=== PATIENT | male | born 1980 | race African-American/Black ===

== ENCOUNTER 2021-03-18 07:59 | Emergency (ER) | payer MEDICAID ==
[~2021-03-18] VITALS: Ht 170.2 cm; Wt 77.0 kg
[2021-03-18] MEDS ORDERED: LEVETIRACETAM 1000MG PREMIX 100 ML IV ONE (08:15)
[2021-03-18 08:37] LABS: BASOPHILS % 0.5 % (0.0-2.0); EOSINOPHILS % 0.2 % (0.0-5.0); HEMATOCRIT. 45.6 % (42.0-52.0); HEMOGLOBIN. 14.9 g/dL (14.0-18.0); LYMPHOCYTES % 14.7 % (20.0-50.0); MEAN CORPUSCULAR VOLUME 100.8 fL (80.0-94.0); MEAN PLATELET VOLUME 9.2 fl (7.4-10.4); MONOCYTES % 10.4 % (2.0-8.0); NEUTROPHILS % 74.2 % (40.0-76.0); PLATELET 129 x1000/uL (130-400); RED BLOOD CELL COUNT 4.52 mill/uL (4.7-6.1); RED CELL DISTRIBUTION WIDTH 14.8 % (11.6-14.6)
[2021-03-18 08:40] LABS: CLARITY URINE CLEAR (CLEAR); COLOR URINE DARK YELLOW (YELLOW); KETONES URINE TRACE (NEGATIVE); LEUKOCYTE ESTERASE URINE NEGATIVE (NEGATIVE); NITRITE URINE NEGATIVE (NEGATIVE); OCCULT BLOOD URINE NEGATIVE (NEGATIVE); PROTEIN URINE 1+ (NEGATIVE); SPECIFIC GRAVITY URINE 1.022 (1.005-1.030)
[2021-03-18 08:50] LABS: *BARBITURATES SCREEN URINE NEGATIVE (NEGATIVE)
[2021-03-18 08:51] LABS: *AMPHETAMINES SCREEN URINE NEGATIVE (NEGATIVE); *BENZODIAZEPINES SCREEN URINE NEGATIVE (NEGATIVE); *COCAINE SCREEN URINE NEGATIVE (NEGATIVE); METHADONE URINE SCREEN NEGATIVE (NEGATIVE)
[2021-03-18 08:52] LABS: CANNABINOID URINE SCREEN NEGATIVE (NEGATIVE); OPIATES URINE SCREEN NEGATIVE (NEGATIVE); PHENCYCLIDINE URINE SCREEN NEGATIVE (NEGATIVE)
[2021-03-18 09:24] LABS: CHLORIDE 104 mEq/L (98-107)
[2021-03-18] MEDS ORDERED: TOPUD PO (10:42)
[2021-03-18] MEDS ORDERED: KETOROLAC 30MG/ML VIAL IV ONE (10:45)
[2021-03-18] MEDS ORDERED: METOCLOPRAMIDE HCL 10MG/2ML VIAL IV ONE (10:45)
[2021-03-18 11:18] VITALS: BP 126/76
== END 2021-03-18 11:50 | disposition home or self-care (01) ==
LOC: ER 07:59
DX: R56.9 Unspecified convulsions (principal)
CPT/HCPCS: 36415; 70450; 80053; 80305; 80320; 81003; 82962; 85025; 93005; 96365; 96375; 99285; J1885; J1953; J2765; Z7610; G0480

== ENCOUNTER 2024-01-07 17:00 | Emergency (ER) | payer MEDICAID ==
[~2024-01-07] VITALS: Ht 165.1 cm; Wt 70.0 kg
[~2024-01-07 17:00] MED LIST: TOPUD PO
[2024-01-07 17:06] VITALS: O2SAT 98
[2024-01-07 18:06] LABS: HEMOGLOBIN. 12.1 g/dL (14.0-18.0); MEAN CORPUSCULAR HEMOGLOBIN 27.6 pg (28.0-32.0); MEAN CORPUSCULAR VOLUME 86.4 fL (80.0-94.0); MEAN PLATELET VOLUME 8.3 fl (7.4-10.4); PLATELET 127 x1000/uL (130-400); RED CELL DISTRIBUTION WIDTH 23.5 % (11.6-14.6)
[2024-01-07 18:07] LABS: DIFFERENTIAL COMMENT 1
[2024-01-07 18:19] LABS: ALANINE AMINOTRANSFERASE 14 IU/L (10-49); ALBUMIN 4.7 g/dL (3.2-4.8); ASPARTATE AMINOTRANSFERASE 36 IU/L (<34); BILIRUBIN TOTAL 0.6 mg/dL (0.1-1.0); CALCIUM 9.6 mg/dL (8.7-10.4); CARBON DIOXIDE 28 mEq/L (21-32); CHLORIDE 104 mEq/L (98-107); CREATININE 0.8 mg/dL (0.6-1.3); GLUCOSE 100 mg/dL (70-105); POTASSIUM 4.1 mEq/L (3.5-5.1); PROTEIN TOTAL 8.6 g/dL (6.0-8.3); SODIUM 139 mEq/L (136-145); UREA NITROGEN BLOOD 11 mg/dL (9-23)
[2024-01-07 18:23] LABS: GIANT PLATELETS 1+; PLATELET ESTIMATE NORMAL
[2024-01-07] MEDS: LEVETIRACETAM 500MG PREMIX 100 ML IV ONE (18:24)
[2024-01-07] MEDS ORDERED: KEPP500 MT (19:26)
[2024-01-07] MEDS ORDERED: ONDA4TAB50 MT (19:26)
[2024-01-07] MEDS: ONDANSETRON HCL 4MG/2ML INJ IV ONE (19:55)
[2024-01-07 21:03] LABS: CLARITY URINE CLEAR (CLEAR); COLOR URINE YELLOW (YELLOW); GLUCOSE URINE NEGATIVE (NEGATIVE); KETONES URINE TRACE (NEGATIVE); LEUKOCYTE ESTERASE URINE NEGATIVE (NEGATIVE); NITRITE URINE NEGATIVE (NEGATIVE); OCCULT BLOOD URINE NEGATIVE (NEGATIVE); PH URINE 6.5 (4.5-8.0); PROTEIN URINE 1+ (NEGATIVE); SPECIFIC GRAVITY URINE 1.021 (1.005-1.030)
[2024-01-07] MEDS: ACETAMINOPHEN 325MG TABLET PO ONE (21:21)
[2024-01-07 21:51] LABS: BACTERIA URINE NONE SEEN; RBC URINE 0-2 /hpf (0-2); SQUAMOUS EPITHELIAL CELL URINE FEW /lpf (RARE/1+); WBC URINE 0-2 /hpf (0-2); YEAST URINE NONE SEEN
[2024-01-07 23:29] VITALS: BP 128/86; PULSE 68; RESP 18; TEMP 98.4
== END 2024-01-07 23:30 | disposition home or self-care (01) ==
LOC: ER 17:00
DX: G40.909 Epilepsy, unspecified, not intractable, without status epilepticus (principal)
CPT/HCPCS: 80053; 81003; 85025; 36415; 70450; 96365; 96375; 99285; J1953; J2405; Z7610 ×2